=== PATIENT | female | born 1980 | race Two or more races ===

== ENCOUNTER 2017-06-12 02:19 | Inpatient (IN) | payer MEDICAID ==
[~2017-06-12] VITALS: Ht 165.1 cm; Wt 70.0 kg
[2017-06-12 03:32] LABS: microscopic required? NO
[2017-06-12 03:48] LABS: UA SPECIFIC GRAVITY <=1.005 (1.005-1.035); urine erythrocyte NEGATIVE (NEGATIVE)
[2017-06-12 03:52] LABS: BASOPHIL % 0.6 % (0-2)
[2017-06-12 03:54] LABS: PLATELET COUNT 425 x10^3mcL (130-400); RED CELL DISTRIBUTION WIDTH 17.4 % (11.5-14.5)
[2017-06-12 04:01] LABS: CALCIUM 8.9 mg/dL (8.5-10.1); CARBON DIOXIDE 21.9 mmol/L (21-32); CHLORIDE SERUM 103 mmol/L (98-107); GFR1 > 60 mL/min; GLUCOSE SERUM 291 mg/dL (74-106); POTASSIUM SERUM 3.4 mmol/L (3.5-5.1); SODIUM SERUM 141 mmol/L (136-145)
[2017-06-12 04:13] LABS: ALKALINE PHOSPHATASE 44 U/L (46-116); ALT/SGPT 22 U/L (14-59); AST/SGOT 22 U/L (15-37); FREE T4 1.05 ng/dL (0.76-1.46); LIPASE 264 IU/L (73-393); TOTAL PROTEIN, SERUM 7.4 g/dL (6.4-8.2)
[2017-06-12 04:16] LABS: ALBUMIN 3.3 g/dL (3.4-5.0)
[2017-06-12 04:37] LABS: BILIRUBIN TOTAL 0.1 mg/dL (0.20-1.00)
[2017-06-12 05:05] LABS: OSMOLALITY SERUM 380 mOsm/kg (278-298)
[2017-06-12] MEDS ORDERED: METFORMIN HYD1000 M2 PO (05:10)
[2017-06-12] MEDS ORDERED: METOPROLOL TART25 M1 PO (05:36)
[2017-06-12] MEDS ORDERED: LEVEMIR100 U/M1 SC (05:37)
[2017-06-12] MEDS ORDERED: SYNTHROID0.175 MG PO (05:37)
[2017-06-12] MEDS ORDERED: LOSARTAN POTASS1 TA6 PO (05:38)
[2017-06-12 06:30] VITALS: BP 103/69
[2017-06-12 07:23] LABS: AMPHETAMINE QUAL UR NONE DETECTED (NEG <=1000)
[2017-06-12 07:30] LABS: MAGNESIUM 1.7 mg/dL (1.8-2.4); PHOSPHOROUS 2.6 mg/dL (2.5-4.9)
[2017-06-12 07:31] LABS: CHOLESTEROL/HDL RATIO 5.7
[2017-06-12 08:22] VITALS: BP 98/65
[2017-06-12 10:31] VITALS: BP 116/53
[2017-06-12 13:51] LABS: CALCIUM 9.2 mg/dL (8.5-10.1); CARBON DIOXIDE 25.2 mmol/L (21-32); CHLORIDE SERUM 101 mmol/L (98-107); GFR1 > 60 mL/min; GLUCOSE SERUM 295 mg/dL (74-106); POTASSIUM SERUM 3.4 mmol/L (3.5-5.1); SODIUM SERUM 139 mmol/L (136-145)
[2017-06-12 14:15] VITALS: BP 119/63
[2017-06-12 17:05] VITALS: BP 139/61
[2017-06-12 21:18] VITALS: BP 114/77
[2017-06-13 05:55] VITALS: BP 125/85
[2017-06-13 07:03] LABS: CALCIUM 9.3 mg/dL (8.5-10.1); CARBON DIOXIDE 26.1 mmol/L (21-32); CHLORIDE SERUM 101 mmol/L (98-107); CREATININE SERUM 0.8 mg/dL (0.6-1.0); GFR1 > 60 mL/min; GLUCOSE SERUM 237 mg/dL (74-106); MAGNESIUM 1.6 mg/dL (1.8-2.4); POTASSIUM SERUM 3.5 mmol/L (3.5-5.1); SODIUM SERUM 138 mmol/L (136-145)
[2017-06-13 07:32] LABS: BASOPHIL % 0.3 % (0-2); PLATELET COUNT 350 x10^3mcL (130-400)
[2017-06-13 07:34] LABS: RED CELL DISTRIBUTION WIDTH 18.1 % (11.5-14.5)
[2017-06-13] MEDS ORDERED: METOPROLOL TART25 M1 PO (10:01)
[2017-06-13] MEDS ORDERED: LOSARTAN POTASS1 TA6 PO (10:01)
[2017-06-13] MEDS ORDERED: SYNTHROID0.175 MG PO (10:05)
[2017-06-13 10:11] VITALS: BP 119/86
[2017-06-13] MEDS ORDERED: COL100 PO (10:11)
[2017-06-13] MEDS ORDERED: THERAGRAN-M1 TA4 PO (10:14)
[2017-06-13] MEDS ORDERED: LANTUS SOLOS100 U/M1 SQ (10:14)
[2017-06-13] MEDS ORDERED: FOL1 PO (10:15)
[2017-06-13] MEDS ORDERED: THI100 PO (10:15)
[2017-06-13] MEDS ORDERED: LIB25 PO (10:18)
[2017-06-13] MEDS ORDERED: ACETAMINOPHEN-H1 TA1 PO (10:18)
[2017-06-13] MEDS ORDERED: OMEPRAZOLE40 M1 PO (10:19)
[2017-06-13] MEDS ORDERED: BENADRYL ALLERG25 M1 PO (10:19)
[2017-06-13] MEDS ORDERED: CIPRO500 MG PO (10:20)
[2017-06-13] MEDS ORDERED: HUMULIN R100 U/1 M1 SC (10:33)
[2017-06-13] MEDS ORDERED: GLIPIZIDE5 M2 PO (10:47)
[2017-06-13] MEDS ORDERED: ESCITALOPRAM10 M1 PO (11:15)
[2017-06-13 12:22] VITALS: BP 119/86
== END 2017-06-13 13:05 | disposition home or self-care (01) | DRG 775 ==
LOC: ED 02:19 → DU 05:08 → MU 05:08 → DU 06:26 → MU 06-13 08:07
PROVIDERS: Emergency Medicine; Family Medicine
DX: F10.229 Alcohol dependence with intoxication, unspecified (principal); F10.239 Alcohol dependence with withdrawal, unspecified; G92 Toxic encephalopathy; D68.69 Other thrombophilia; E87.2 Acidosis; E11.65 Type 2 diabetes mellitus with hyperglycemia; E83.42 Hypomagnesemia; T51.0X1A Toxic effect of ethanol, accidental (unintentional), initial encounter; T38.3X6A Underdosing of insulin and oral hypoglycemic [antidiabetic] drugs, initial encounter; N83.202 Unspecified ovarian cyst, left side; E87.6 Hypokalemia; F32.9 Major depressive disorder, single episode, unspecified; E66.3 Overweight; Z68.25 Body mass index [BMI] 25.0-25.9, adult; Z66 Do not resuscitate; Z91.120 Patient's intentional underdosing of medication regimen due to financial hardship; Y90.8 Blood alcohol level of 240 mg/100 ml or more; Y92.009 Unspecified place in unspecified non-institutional (private) residence as the place of occurrence of the external cause
CPT/HCPCS: 82962; 83880; 84439; 87804; G0480; J1815; J1885; J2270; J7030; Q0092; Q0163

== ENCOUNTER 2017-12-04 01:37 | Inpatient (IN) | payer SELFPAY ==
[~2017-12-04] VITALS: Ht 165.1 cm; Wt 68.5 kg
[~2017-12-04 01:37] MED LIST: ACETAMINOPHEN-H1 TA1 PO; BENADRYL ALLERG25 M1 PO; CIPRO500 MG PO; COL100 PO; ESCITALOPRAM10 M1 PO; FOL1 PO; GLIPIZIDE5 M2 PO; HUMULIN R100 U/1 M1 SC; LANTUS SOLOS100 U/M1 SQ; LEVEMIR100 U/M1 SC; LIB25 PO; LOSARTAN POTASS1 TA6 PO; METFORMIN HYD1000 M2 PO; METOPROLOL TART25 M1 PO; OMEPRAZOLE40 M1 PO; SYNTHROID0.175 MG PO; THERAGRAN-M1 TA4 PO; THI100 PO
[2017-12-04 03:46] LABS: BASOPHIL % 0.7 % (0-2)
[2017-12-04 04:02] LABS: ALBUMIN 3.4 g/dL (3.4-5.0); ALKALINE PHOSPHATASE 49 U/L (46-116); ALT/SGPT 13 U/L (14-59); AST/SGOT 41 U/L (15-37); BILIRUBIN TOTAL 0.19 mg/dL (0.20-1.00); CALCIUM 8.7 mg/dL (8.5-10.1); CARBON DIOXIDE 14.5 mmol/L (21-32); CHLORIDE SERUM 102 mmol/L (98-107); CREATININE SERUM 0.6 mg/dL (0.6-1.0); GFR1 > 60 mL/min; GLUCOSE SERUM 322 mg/dL (74-106); SODIUM SERUM 139 mmol/L (136-145); TOTAL PROTEIN, SERUM 7.6 g/dL (6.4-8.2)
[2017-12-04 04:03] LABS: PLATELET COUNT 431 x10^3mcL (130-400); RED CELL DISTRIBUTION WIDTH 17.8 % (11.5-14.5)
[2017-12-04] MEDS ORDERED: METFORMIN HYD1000 M2 PO (04:52)
[2017-12-04] MEDS ORDERED: TOPROL XL25 MG PO (04:53)
[2017-12-04] MEDS ORDERED: TIROSINT50 MC1 PO (04:53)
[2017-12-04 05:17] LABS: AMYLASE 76 U/L (25-115); HDL CHOLESTEROL 45 mg/dL (40-60)
[2017-12-04 05:21] LABS: CHOLESTEROL 209 mg/dL (<200); CHOLESTEROL/HDL RATIO 4.6; TRIGLYCERIDES 517 mg/dL (<150)
[2017-12-04 05:25] LABS: T3 TOTAL 0.77 ng/mL
[2017-12-04 05:28] LABS: FREE T4 1.05 ng/dL (0.76-1.46); T4(THYROXINE) 5.7 ug/dL (4.7-13.3)
[2017-12-04 06:49] LABS: microscopic required? NO
[2017-12-04 07:52] LABS: UA SPECIFIC GRAVITY <=1.005 (1.005-1.035); urine erythrocyte NEGATIVE (NEGATIVE)
[2017-12-04 08:29] VITALS: BP 103/59
[2017-12-04 08:55] LABS: CARBON DIOXIDE 17.1 mmol/L (21-32); CHLORIDE SERUM 107 mmol/L (98-107); CREATININE SERUM 0.6 mg/dL (0.6-1.0); GFR1 > 60 mL/min; GLUCOSE SERUM 226 mg/dL (74-106); MAGNESIUM 1.2 mg/dL (1.8-2.4); PHOSPHOROUS 1.5 mg/dL (2.5-4.9); POTASSIUM SERUM 3.6 mmol/L (3.5-5.1); SODIUM SERUM 140 mmol/L (136-145)
[2017-12-04 09:47] LABS: AMPHETAMINE QUAL UR NONE DETECTED (See below)
[2017-12-04 11:31] VITALS: BP 118/71
[2017-12-04 13:56] LABS: CARBON DIOXIDE 21.6 mmol/L (21-32); CHLORIDE SERUM 107 mmol/L (98-107); CREATININE SERUM 0.5 mg/dL (0.6-1.0); GFR1 > 60 mL/min; GLUCOSE SERUM 134 mg/dL (74-106); MAGNESIUM 1.4 mg/dL (1.8-2.4); PHOSPHOROUS 1.9 mg/dL (2.5-4.9); SODIUM SERUM 143 mmol/L (136-145)
[2017-12-04 16:11] VITALS: BP 122/91
[2017-12-04 16:42] VITALS: Ht 165.1 cm; Wt 68.5 kg
[2017-12-04 16:42] LABS: CALCIUM 6.8 mg/dL (8.5-10.1); CARBON DIOXIDE 22.1 mmol/L (21-32); CHLORIDE SERUM 105 mmol/L (98-107); CREATININE SERUM 0.4 mg/dL (0.6-1.0); GFR1 > 60 mL/min; GLUCOSE SERUM 128 mg/dL (74-106); PHOSPHOROUS 1.5 mg/dL (2.5-4.9); POTASSIUM SERUM 3.1 mmol/L (3.5-5.1); SODIUM SERUM 140 mmol/L (136-145)
[2017-12-04 16:52] LABS: MAGNESIUM 1.7 mg/dL (1.8-2.4)
[2017-12-04 19:59] VITALS: BP 122/77
[2017-12-04 20:46] LABS: CARBON DIOXIDE 19.1 mmol/L (21-32); CHLORIDE SERUM 104 mmol/L (98-107); CREATININE SERUM 0.5 mg/dL (0.6-1.0); GFR1 > 60 mL/min; GLUCOSE SERUM 146 mg/dL (74-106); MAGNESIUM 1.4 mg/dL (1.8-2.4); PHOSPHOROUS 2.4 mg/dL (2.5-4.9); POTASSIUM SERUM 3.3 mmol/L (3.5-5.1); SODIUM SERUM 139 mmol/L (136-145)
[2017-12-05] VITALS: BP 124/83
[2017-12-05 01:55] LABS: BASOPHIL % 0.5 % (0-2); PLATELET COUNT 357 x10^3mcL (130-400)
[2017-12-05 01:58] LABS: RED CELL DISTRIBUTION WIDTH 18.3 % (11.5-14.5)
[2017-12-05 02:14] LABS: ALKALINE PHOSPHATASE 38 U/L (46-116); ALT/SGPT 26 U/L (14-59); AST/SGOT 34 U/L (15-37); BILIRUBIN TOTAL 0.38 mg/dL (0.20-1.00); CALCIUM 7.6 mg/dL (8.5-10.1); CARBON DIOXIDE 22.9 mmol/L (21-32); CHLORIDE SERUM 103 mmol/L (98-107); CREATININE SERUM 0.7 mg/dL (0.6-1.0); GFR1 > 60 mL/min; GLUCOSE SERUM 212 mg/dL (74-106); SODIUM SERUM 134 mmol/L (136-145)
[2017-12-05 02:15] LABS: ALBUMIN 2.7 g/dL (3.4-5.0)
[2017-12-05 04:00] VITALS: BP 111/88
[2017-12-05 06:02] LABS: BASOPHIL % 0.7 % (0-2); PLATELET COUNT 360 x10^3mcL (130-400)
[2017-12-05 06:03] LABS: RED CELL DISTRIBUTION WIDTH 18.5 % (11.5-14.5)
[2017-12-05 06:06] LABS: CALCIUM 7.5 mg/dL (8.5-10.1); CARBON DIOXIDE 25.1 mmol/L (21-32); CHLORIDE SERUM 106 mmol/L (98-107); CREATININE SERUM 0.6 mg/dL (0.6-1.0); GFR1 > 60 mL/min; GLUCOSE SERUM 124 mg/dL (74-106); MAGNESIUM 1.2 mg/dL (1.8-2.4); PHOSPHOROUS 2.5 mg/dL (2.5-4.9); POTASSIUM SERUM 3.2 mmol/L (3.5-5.1); SODIUM SERUM 136 mmol/L (136-145)
[2017-12-05 07:30] VITALS: BP 92/55
[2017-12-05 15:04] VITALS: BP 132/87
[2017-12-05 18:03] VITALS: BP 119/82
[2017-12-05 22:10] VITALS: BP 99/69
[2017-12-06 05:33] VITALS: BP 128/85
[2017-12-06 07:01] LABS: BASOPHIL % 0.6 % (0-2); PLATELET COUNT 338 x10^3mcL (130-400)
[2017-12-06 07:02] LABS: RED CELL DISTRIBUTION WIDTH 18.6 % (11.5-14.5)
[2017-12-06 07:30] LABS: CALCIUM 7.3 mg/dL (8.5-10.1); CARBON DIOXIDE 24.1 mmol/L (21-32); CHLORIDE SERUM 104 mmol/L (98-107); CREATININE SERUM 0.6 mg/dL (0.6-1.0); GFR1 > 60 mL/min; GLUCOSE SERUM 229 mg/dL (74-106); MAGNESIUM 1.8 mg/dL (1.8-2.4); PHOSPHOROUS 2.9 mg/dL (2.5-4.9); POTASSIUM SERUM 3.9 mmol/L (3.5-5.1); SODIUM SERUM 137 mmol/L (136-145)
[2017-12-06 09:02] VITALS: BP 118/83
[2017-12-06] MEDS ORDERED: METFORMIN HCL850 MG PO (11:24)
[2017-12-06] MEDS ORDERED: ATI1 PO (11:29)
[2017-12-06] MEDS ORDERED: SYN75 PO (11:29)
[2017-12-06 12:45] VITALS: BP 115/87
[2017-12-06 14:08] VITALS: BP 115/87
== END 2017-12-06 19:15 | disposition home or self-care (01) | DRG 638 ==
LOC: ED 01:37 → IC 04:35 → DU 12-05 11:58
PROVIDERS: Emergency Medicine; Internal Medicine
DX: E11.10 Type 2 diabetes mellitus with ketoacidosis without coma (principal); K86.1 Other chronic pancreatitis; F10.129 Alcohol abuse with intoxication, unspecified; Y90.7 Blood alcohol level of 200-239 mg/100 ml; K52.9 Noninfective gastroenteritis and colitis, unspecified; E87.6 Hypokalemia; E83.42 Hypomagnesemia; E83.39 Other disorders of phosphorus metabolism; E78.1 Pure hyperglyceridemia; I10 Essential (primary) hypertension; E03.9 Hypothyroidism, unspecified; Z79.4 Long term (current) use of insulin
CPT/HCPCS: 83880; 84439; C9113; G0480; J1815; J2060; J2270; J2405; J3475; J3480; J3490; J7030; Q0092

== ENCOUNTER 2018-02-07 02:37 | Inpatient (IN) | payer SELFPAY ==
[~2018-02-07] VITALS: Ht 165.1 cm; Wt 70.1 kg
[~2018-02-07 02:37] MED LIST changes: +ACYCLOVIR400 MG PO; +ATI1 PO; +ATIVAN1 MG PO; +EPZICOM1 TAB PO; +IBUPROFEN400 MG PO; +LAC PO; +LEVEMIR100 U/M1 SQ; +METFORMIN HCL850 MG PO; +NITROFURANTOIN100 MG PO; +PYRIDIUM100 MG PO; +SYN75 PO; +TETRACYCLINE H500 MG PO; +TIROSINT50 MC1 PO; +TOPROL XL25 MG PO; +[UNRECOGNIZED DRUG - OTHER] TOP
[2018-02-07 04:32] LABS: BASOPHIL % 0.5 % (0-2); PLATELET COUNT 399 x10^3mcL (130-400); RED CELL DISTRIBUTION WIDTH 16.9 % (11.5-14.5)
[2018-02-07 04:34] LABS: ALKALINE PHOSPHATASE 49 U/L (46-116); ALT/SGPT 34 U/L (14-59); AST/SGOT 41 U/L (15-37); BILIRUBIN TOTAL 0.21 mg/dL (0.20-1.00); CALCIUM 9.1 mg/dL (8.5-10.1); CARBON DIOXIDE 17.5 mmol/L (21-32); CHLORIDE SERUM 100 mmol/L (98-107); CREATININE SERUM 0.7 mg/dL (0.6-1.0); FREE T4 1.02 ng/dL (0.76-1.46); GFR1 > 60 mL/min; GLUCOSE SERUM 305 mg/dL (74-106); LIPASE 449 IU/L (73-393); SODIUM SERUM 137 mmol/L (136-145); TOTAL PROTEIN, SERUM 7.8 g/dL (6.4-8.2)
[2018-02-07 04:39] LABS: ALBUMIN 3.3 g/dL (3.4-5.0); POTASSIUM SERUM 2.8 mmol/L (3.5-5.1)
[2018-02-07 05:23] LABS: UA SPECIFIC GRAVITY <=1.005 (1.005-1.035); microscopic required? YES; urine erythrocyte 3+ (NEGATIVE)
[2018-02-07 05:35] LABS: AMPHETAMINE QUAL UR NONE DETECTED (See below)
[2018-02-07 07:06] LABS: CHOLESTEROL/HDL RATIO 4.4; MAGNESIUM 1.6 mg/dL (1.8-2.4); PHOSPHOROUS 4.1 mg/dL (2.5-4.9)
[2018-02-07 08:49] VITALS: BP 142/88
[2018-02-07 11:48] VITALS: BP 113/70
[2018-02-07 12:46] LABS: CARBON DIOXIDE 20.5 mmol/L (21-32); CHLORIDE SERUM 108 mmol/L (98-107); CREATININE SERUM 0.5 mg/dL (0.6-1.0); GFR1 > 60 mL/min; GLUCOSE SERUM 162 mg/dL (74-106); MAGNESIUM 1.8 mg/dL (1.8-2.4); PHOSPHOROUS 1.3 mg/dL (2.5-4.9); POTASSIUM SERUM 3.3 mmol/L (3.5-5.1); SODIUM SERUM 140 mmol/L (136-145)
[2018-02-07 15:19] VITALS: BP 107/64
[2018-02-07 16:33] LABS: CALCIUM 7.3 mg/dL (8.5-10.1); CARBON DIOXIDE 20.3 mmol/L (21-32); CHLORIDE SERUM 106 mmol/L (98-107); CREATININE SERUM 0.6 mg/dL (0.6-1.0); GFR1 > 60 mL/min; GLUCOSE SERUM 255 mg/dL (74-106); MAGNESIUM 1.6 mg/dL (1.8-2.4); PHOSPHOROUS 2.6 mg/dL (2.5-4.9); SODIUM SERUM 140 mmol/L (136-145)
[2018-02-07 16:36] LABS: POTASSIUM SERUM 2.8 mmol/L (3.5-5.1)
[2018-02-07 19:37] VITALS: BP 103/66
[2018-02-07 20:22] LABS: CALCIUM 7.6 mg/dL (8.5-10.1); CARBON DIOXIDE 22.6 mmol/L (21-32); CREATININE SERUM 0.7 mg/dL (0.6-1.0); GFR1 > 60 mL/min; GLUCOSE SERUM 186 mg/dL (74-106); MAGNESIUM 1.6 mg/dL (1.8-2.4); PHOSPHOROUS 3.2 mg/dL (2.5-4.9)
[2018-02-07 20:28] LABS: CHLORIDE SERUM 105 mmol/L (98-107); POTASSIUM SERUM 3.7 mmol/L (3.5-5.1); SODIUM SERUM 135 mmol/L (136-145)
[2018-02-07 23:40] VITALS: BP 101/73
[2018-02-08 00:44] LABS: CALCIUM 7.4 mg/dL (8.5-10.1); CARBON DIOXIDE 22.1 mmol/L (21-32); CHLORIDE SERUM 105 mmol/L (98-107); CREATININE SERUM 0.5 mg/dL (0.6-1.0); GFR1 > 60 mL/min; GLUCOSE SERUM 212 mg/dL (74-106); MAGNESIUM 1.7 mg/dL (1.8-2.4); PHOSPHOROUS 2.8 mg/dL (2.5-4.9); POTASSIUM SERUM 3.4 mmol/L (3.5-5.1); SODIUM SERUM 137 mmol/L (136-145)
[2018-02-08 03:10] VITALS: BP 102/76
[2018-02-08 04:43] LABS: BASOPHIL % 0.5 % (0-2); PLATELET COUNT 309 x10^3mcL (130-400)
[2018-02-08 04:51] LABS: RED CELL DISTRIBUTION WIDTH 17.2 % (11.5-14.5)
[2018-02-08 05:18] LABS: CALCIUM 7.6 mg/dL (8.5-10.1); CHLORIDE SERUM 106 mmol/L (98-107); CREATININE SERUM 0.6 mg/dL (0.6-1.0); GFR1 > 60 mL/min; GLUCOSE SERUM 126 mg/dL (74-106); MAGNESIUM 2.3 mg/dL (1.8-2.4); SODIUM SERUM 134 mmol/L (136-145)
[2018-02-08 08:20] VITALS: Ht 165.1 cm; Wt 70.1 kg
[2018-02-08 08:37] LABS: CALCIUM 8.1 mg/dL (8.5-10.1); CARBON DIOXIDE 22.7 mmol/L (21-32); CHLORIDE SERUM 105 mmol/L (98-107); CREATININE SERUM 0.5 mg/dL (0.6-1.0); GFR1 > 60 mL/min; GLUCOSE SERUM 221 mg/dL (74-106); MAGNESIUM 2.1 mg/dL (1.8-2.4); PHOSPHOROUS 2.8 mg/dL (2.5-4.9); POTASSIUM SERUM 3.3 mmol/L (3.5-5.1); SODIUM SERUM 138 mmol/L (136-145)
[2018-02-08 10:05] VITALS: BP 105/48
[2018-02-08 11:20] VITALS: BP 111/78
[2018-02-08 13:20] LABS: CALCIUM 8.1 mg/dL (8.5-10.1); CARBON DIOXIDE 21.5 mmol/L (21-32); CHLORIDE SERUM 103 mmol/L (98-107); CREATININE SERUM 0.6 mg/dL (0.6-1.0); GFR1 > 60 mL/min; GLUCOSE SERUM 356 mg/dL (74-106); PHOSPHOROUS 3.2 mg/dL (2.5-4.9); POTASSIUM SERUM 3.5 mmol/L (3.5-5.1); SODIUM SERUM 136 mmol/L (136-145)
[2018-02-08 16:42] VITALS: BP 122/54
[2018-02-08 16:50] LABS: CALCIUM 8.1 mg/dL (8.5-10.1); CARBON DIOXIDE 23.1 mmol/L (21-32); CHLORIDE SERUM 105 mmol/L (98-107); CREATININE SERUM 0.6 mg/dL (0.6-1.0); GFR1 > 60 mL/min; GLUCOSE SERUM 319 mg/dL (74-106); MAGNESIUM 1.9 mg/dL (1.8-2.4); PHOSPHOROUS 2.7 mg/dL (2.5-4.9); POTASSIUM SERUM 3.3 mmol/L (3.5-5.1); SODIUM SERUM 136 mmol/L (136-145)
[2018-02-08 20:31] VITALS: BP 11/96; BP 118/96
[2018-02-09 05:32] VITALS: BP 119/87
[2018-02-09 07:03] LABS: BASOPHIL % 0.5 % (0-2); PLATELET COUNT 306 x10^3mcL (130-400)
[2018-02-09 07:15] LABS: RED CELL DISTRIBUTION WIDTH 17.7 % (11.5-14.5)
[2018-02-09 07:46] LABS: CALCIUM 8.5 mg/dL (8.5-10.1); CARBON DIOXIDE 25.6 mmol/L (21-32); CHLORIDE SERUM 108 mmol/L (98-107); CREATININE SERUM 0.6 mg/dL (0.6-1.0); GFR1 > 60 mL/min; GLUCOSE SERUM 176 mg/dL (74-106); MAGNESIUM 1.7 mg/dL (1.8-2.4); PHOSPHOROUS 3.3 mg/dL (2.5-4.9); POTASSIUM SERUM 3.5 mmol/L (3.5-5.1); SODIUM SERUM 141 mmol/L (136-145)
[2018-02-09 08:27] VITALS: BP 118/81
[2018-02-09] MEDS ORDERED: METOPROLOL TART25 M1 PO (11:51)
[2018-02-09] MEDS ORDERED: VALTREX1 GM PO (11:54)
[2018-02-09] MEDS ORDERED: BACTRIM DS1 TAB PO (12:00)
[2018-02-09 13:15] VITALS: BP 118/81
== END 2018-02-09 15:44 | disposition home or self-care (01) | DRG 637 ==
LOC: ED 02:37 → IC 05:55 → MU 05:55 → IC 07:08 → MU 02-08 11:21
PROVIDERS: Emergency Medicine; Internal Medicine
DX: E11.10 Type 2 diabetes mellitus with ketoacidosis without coma (principal); N17.0 Acute kidney failure with tubular necrosis; N39.0 Urinary tract infection, site not specified; I10 Essential (primary) hypertension; E11.65 Type 2 diabetes mellitus with hyperglycemia; E03.9 Hypothyroidism, unspecified; E78.5 Hyperlipidemia, unspecified; E87.6 Hypokalemia; E83.42 Hypomagnesemia; F10.129 Alcohol abuse with intoxication, unspecified; Y90.8 Blood alcohol level of 240 mg/100 ml or more; A60.04 Herpesviral vulvovaginitis; Z79.4 Long term (current) use of insulin; Z83.3 Family history of diabetes mellitus; Z79.899 Other long term (current) drug therapy
CPT/HCPCS: 82962; 83880; 84439; G0480; J0696; J1815; J2060; J2270; J3010; J3411; J3475; J3480; J3490; J7030; Q0163

== ENCOUNTER 2018-03-17 05:10 | Emergency (ER) | payer SELFPAY ==
[~2018-03-17] VITALS: Ht 165.1 cm; Wt 61.2 kg
[~2018-03-17 05:10] MED LIST changes: +BACTRIM DS1 TAB PO; +VALTREX1 GM PO
[2018-03-17 05:13] VITALS: Ht 165.1 cm; Wt 61.2 kg
[2018-03-17 05:59] LABS: BASOPHIL % 0.4 % (0-2)
[2018-03-17 06:06] LABS: PLATELET COUNT 462 x10^3mcL (130-400); RED CELL DISTRIBUTION WIDTH 16.3 % (11.5-14.5)
[2018-03-17 06:08] LABS: ALKALINE PHOSPHATASE 55 U/L (46-116); ALT/SGPT 34 U/L (14-59); AST/SGOT 46 U/L (15-37); BILIRUBIN TOTAL 0.14 mg/dL (0.20-1.00); CALCIUM 7.9 mg/dL (8.5-10.1); CARBON DIOXIDE 23.3 mmol/L (21-32); CHLORIDE SERUM 109 mmol/L (98-107); CREATININE SERUM 0.6 mg/dL (0.6-1.0); GFR1 > 60 mL/min; GLUCOSE SERUM 96 mg/dL (74-106); SODIUM SERUM 145 mmol/L (136-145); TOTAL PROTEIN, SERUM 7.3 g/dL (6.4-8.2)
[2018-03-17 06:15] LABS: POTASSIUM SERUM 2.8 mmol/L (3.5-5.1)
[2018-03-17 07:43] LABS: UA SPECIFIC GRAVITY <=1.005 (1.005-1.035); microscopic required? YES; urine erythrocyte NEGATIVE (NEGATIVE)
[2018-03-17 10:38] VITALS: BP 120/81
== END 2018-03-17 11:16 | disposition home or self-care (01) ==
LOC: ED 05:10
PROVIDERS: Emergency Medicine
DX: E11.649 Type 2 diabetes mellitus with hypoglycemia without coma (principal); F10.129 Alcohol abuse with intoxication, unspecified; E03.9 Hypothyroidism, unspecified; I10 Essential (primary) hypertension; Z98.890 Other specified postprocedural states
CPT/HCPCS: 82962; G0480; J1885; J3475; J3480; J3490; J7030; J7050

== ENCOUNTER 2019-01-16 23:02 | Inpatient (IN) | payer MEDICAID ==
[~2019-01-16] VITALS: Ht 165.1 cm; Wt 62.9 kg
[2019-01-16 23:06] VITALS: Ht 165.1 cm; Wt 62.9 kg
--- NOTE | 2019-01-17 00:10 | NUR ---
MSE COMPLETED BY DR FINE.
--- NOTE | 2019-01-17 00:12 | NUR ---
PT PRESENTS TO THE ED TODAY WITH C/C OF "LOSS" OF PEDAL PULSES X1 WEEK. PT HAS SIGNIFICANT HISTORY OF DM WITH NEUROPATHY. REPORTS THAT SHE IS HAVING NUMBNESS TO BILATERAL FEET. FEET ARE WARM AND PINK WITH STRONG PEDAL PULSES PALPATED. PT IS AWAKE AND ALERT, RESP E/U, NAD NOTED.
--- NOTE | 2019-01-17 00:44 | NUR ---
IV BOLUS INITIATED. SHORTLY AFTERWARDS, PT STATED "OH I'M ITCHY NOW, FOR SOME REASON, I GET ITCHY WHENEVER YOU GIVE ME NORMAL FLUIDS." PT REQUESTED BENADRYL AT THIS TIME. PT ALSO REPORTS THAT SHE IS HAVING BILATERAL LEG PAIN, RATES PAIN 9/10. PT THEN STATED "I USUALLY GET MORPHINE OR DILAUDID." MADE AWARE. PT LAYING COMFORTABLY IN GURNEY, AWAKE AND ALERT, RESP E/U, NAD NOTED.
[2019-01-17 00:45] LABS: BASOPHIL % 0.2 % (0-2); PLATELET COUNT 303 x10^3mcL (130-400)
--- NOTE | 2019-01-17 00:45 | NUR ---
PT AWARE OF NEED FOR URINE SAMPLE, WILL PROVIDE WHEN SHE IS ABLE TO.
--- NOTE | 2019-01-17 00:47 | NUR ---
UPON LEAVING ROOM, PT STATED "CAN YOU ALSO ASK THE DOCTOR FOR SOMETHING FOR MY ANXIETY? I'LL TAKE WHATEVER, LIKE ATIVAN OR SOMETHING." MADE AWARE.
[2019-01-17 01:03] LABS: ALBUMIN 3.4 g/dL (3.4-5.0); ALKALINE PHOSPHATASE 102 U/L (46-116); ALT/SGPT 51 U/L (14-59); AST/SGOT 27 U/L (15-37); CALCIUM 8.6 mg/dL (8.5-10.1); CARBON DIOXIDE 23.1 mmol/L (21-32); CHLORIDE SERUM 99 mmol/L (98-107); CREATININE SERUM 0.9 mg/dL (0.6-1.0); GFR1 > 60 mL/min; POTASSIUM SERUM 3.8 mmol/L (3.5-5.1); SODIUM SERUM 137 mmol/L (136-145); TOTAL PROTEIN, SERUM 7.4 g/dL (6.4-8.2)
[2019-01-17 01:06] LABS: GLUCOSE SERUM 610 mg/dL (74-106)
--- NOTE | 2019-01-17 01:30 | NUR ---
PT. REQUESTING PAIN MEDICATION AND ANXIETY MEDICAION. DR. FINE MADE AWARE.
--- NOTE | 2019-01-17 03:00 | NUR ---
PT. OUT OF BED WALKING TO [employer], STATES SHE WANTS TO GO OUTSIDE AND SMOKE AND CIGARETTE. INFORMED PT. SHE IS NOT ALLOWED TO GO OUTSIDE AT THIS TIME. PT. VERBALIZED UNDERSTANDING AND AMBULATED BACK TO ROOM WITH STEADY GAIT
--- NOTE | 2019-01-17 03:19 | NUR ---
REPORT GIVEN TO MARCIA CHAN FOR FURTHER CARE OF PATIENT. ALL QUESTIONS AND CONCERNS ADDRESSED
[2019-01-17] MEDS ORDERED: GABAPENTIN100 M2 (03:27)
[2019-01-17] MEDS ORDERED: LANTUS SOLOS100 U/M1 (03:27)
[2019-01-17] MEDS ORDERED: SIMVASTATIN10 M1 (03:28)
--- NOTE | 2019-01-17 03:50 | NUR ---
PT. TRANSFERED TO TELE DEPARTMENT VIA GURNEY. PT. AWAKE AND ALERT. BREATHING E/U. NOT IN ANY APPARENT DISTRESS. AMBULATED TO BED WITH ASSISTANCE. REPORTS FEELING SLEEPY AND TIRED AFTER BENADRLY. ROCIO MÉNDEZ AT BEDSIDE AND ASSUMED CARE OF PATIENT. PT. STABLE AT TIME OF TRANSFER.
--- NOTE | 2019-01-17 04:21 | NUR ---
ADMITTED PT FROM ER WITH ADMITTING DX OF UNCONTROLLED DM, FACILITATED TO ASSIGNED BED AND ADMISSION CARE PROT RENDERED, ORIENTED TO ROOM SET UP, PT AMBULATORY WOBBLE A LITTLE DROWSY, PER NURSE BENADRYL JUST GIVEN FOR ITCHING ENSURES SAFETY, BED ALARM ON, HOOKED TO TELE MONITOR #15 SR NO CP OR PRESSURE IV ACCESS @ [facility] PATENT IVF NS INFUSING STARTED IN ER, NO S/SX OF HYPO/HYPERGLYCEMIA, BS 228 MG/DL PER REPORT, AFTER 10UNITS REG INSULIN GIVEN IV AT ER, ADMISSION ASSESSMENT DONE, INSTRUCTED PT TO USE THE CALL LIGHT FOR ASSISTANCE, CALL LIGHT AT REACH, BED ALARM ON FOR SAFETY, PT ASKING IF SHE CAN SMOKE WANTED TO GO OUT, EXPLAINED HOSPITAL POLICY FOR SMOKING, WILL CONT TO MONITOR.
[2019-01-17 04:29] LABS: UA SPECIFIC GRAVITY <=1.005 (1.005-1.035); microscopic required? YES; urine erythrocyte NEGATIVE (NEGATIVE)
[2019-01-17 04:30] LABS: AMPHETAMINE QUAL UR NONE DETECTED (See below)
--- NOTE | 2019-01-17 04:40 | NUR ---
PT ATTEMPTED TO GET OUT OF BED, RISK FOR FALL WITH UNSTEADY GAIT, MOVED TO ROOM 248 NEAR TO NURSES STATION, CONT TO MONITOR.
[2019-01-17 05:00] VITALS: BP 107/70
--- NOTE | 2019-01-17 07:16 | NUR ---
PT SLEEPING DONT WANT TO BE BOTHER, BS 218MG/DL COVERED 6 UNITS REG INSULIN NO S/SX OF PAIN, WILL ENDORSE TO INCOMING SHIFT FOR F/U CARE.
[2019-01-17 08:01] VITALS: BP 114/66
[2019-01-17 08:06] LABS: BASOPHIL % 0.7 % (0-2); PLATELET COUNT 293 x10^3mcL (130-400)
[2019-01-17 08:10] LABS: RED CELL DISTRIBUTION WIDTH 16.2 % (11.5-14.5)
[2019-01-17 08:18] LABS: CALCIUM 7.5 mg/dL (8.5-10.1); CARBON DIOXIDE 24.2 mmol/L (21-32); CHLORIDE SERUM 110 mmol/L (98-107); CREATININE SERUM 0.6 mg/dL (0.6-1.0); GFR1 > 60 mL/min; GLUCOSE SERUM 177 mg/dL (74-106); MAGNESIUM 1.4 mg/dL (1.8-2.4); PHOSPHOROUS 3.3 mg/dL (2.5-4.9); POTASSIUM SERUM 3.1 mmol/L (3.5-5.1); SODIUM SERUM 146 mmol/L (136-145)
--- NOTE | 2019-01-17 08:58 | NUR ---
PATIENT STILL IN BED, BREATHING EVEN AND UNLABORED W/ BED SHEET COVERING FACE. GESTURES RESPONSIVE TO FEW VERBAL STIMULI. INTRODUCED MYSELF AND INFORMED HER OF MEDICATIONS DUE. PATIENT STATES UNDER HER SHEET "GIVE ME LIKE 10 MINUTES, AND I'LL GET UP". WILL CONT TO MONITOR.
--- NOTE | 2019-01-17 10:02 | NUR ---
PATIENT REQUESTING FOR PAIN MED FOR LEGS 9/10 TINGLING, TYLENOL OFFERED AND REFUSED ALSO REQUESTING FOR ATIVAN. "I NEED IV MEDS, WHEN IM IN THE HOSPITAL I USUALLY GET MORPHINE IV 4MG EVERY 4-6 HOURS" ALSO STATES TYELNOL MAKES HER BLOATED AND RETAINS FLUIDS? WILL PAGE AND NOTIFY DR MARIO.
--- NOTE | 2019-01-17 11:05 | NUR ---
BLOOD SUGAR 131, PER PATIENT "THATS REALLY LOW FOR ME". STATES HUNGRY AND STILL REQUESTING FOR ANXIETY AND PAIN MEDS. EARLY LUNCH TRAY REQUESTED.
[2019-01-17 11:50] VITALS: BP 97/62
--- NOTE | 2019-01-17 12:02 | NUR ---
PATIENT REQUESTING TO SMOKE OUTSIDE, PATCH OFFERED AND REFUSED. "IF THEYRE NOT GIVING ME MY ANXIETY MEDICATION, THEN THEY NEED TO LET ME BE ESCORTED OUTSIDE TO SMOKE" DR MARIO PAGE GATED. PATIENT STATES TORADOL NOT EFFECTIVE.
--- NOTE | 2019-01-17 12:15 | NUR ---
LUNCH TRAY PROVIDED, PATIENT STATES MEAT WAS TOO HARD REQUESTING FOR A DIFFERENT LUNCH, FNS MADE AWARE, WILL MAKE ACCOMODATIONS.
--- NOTE | 2019-01-17 13:23 | NUR ---
PATIENT PERSISTENT WITH ANXIETY AND PAIN MEDICATIONS, INFORMED HER NO NEW ORDERS WERE PLACED. ALSO INFORMED HER OF HER VERY DROWSY STATE AFTER SHE WAS GIVEN MORPHINE LAST NIGHT PER REPORT AND MEDS MAY NOT BE SAFE AT THIS TIME, PATIENT STATES "WELL IM NOT DROWSY NOW, CANT I TAKE THE MEDS NOW? I WANT A NEW DOCTOR" CHARGE NURSE MADE AWARE, DR MARIO MADE AWARE. SHE CAME AT BEDSIDE AND SPOKE WITH PATIENT. PATIENT STILL PERSISTENT WITH PAIN MANAGEMENT AND ANXIETY MEDICATION, BUT STATES CURRENT TREATMENT NOT HELPING. DR KEN NOW AT BEDSIDE.
--- NOTE | 2019-01-17 14:35 | NUR ---
ATIVAN 0.5MG PO WAS ORDERED, BRIANNA NURSE [place] TRIED TO ADMINISTER, PATIENT REFUSED. PATIENT HAD A 3RD SMALL BM STILL OILY, PER PATIENT "THIS IS WHY I CANT HAVE ORAL MEDS BECAUSE IT JUST GOES RIGHT THROUGH ME LIKE THAT, SO I NEED THE IV MEDS, CAN YOU TELL THE DOCTOR THIS AND ONCE THEY ORDER IT CAN YOU BRING THEM IN? IN THE MEANTIME I'M GOING TO TRY AND REST". DR MARIO PAGED/PAGE GATED.
--- NOTE | 2019-01-17 15:42 | NUR ---
IV ATIVAN 1MG ORDERED AND GIVEN. PATIENT WANTS VANILLA PUDDING, NOT ENCOURAGING DUE TO DIABETES AND DINNER COMING SOON, PATIENT PERSISTENT. ADVISED TO CHECK BLOOD SUGAR FIRST. BS 421, PATIENT STILL WANTS PUDDING, NO ADDED SUGAR PUDDING PROVIDED. INSULIN COVERAGE GIVEN. PATIENT ALSO REQUESTING FOR MIDNIGHT SNACK W/ DINNER (CREAM OF WHEAT), FNS MADE AWARE. WILL CONT TO MONITOR.
[2019-01-17 16:52] VITALS: BP 130/67
--- NOTE | 2019-01-17 18:26 | NUR ---
PATIENT REQUESTING FOR MEDICATIONS FOR NAUSEA, ANXIETY, PAIN AND FOR BENEDRYL IV'S. INFORMED PATIENT ATIVAN WAS ONLY A ONE TIME DOSE AND TORADOL IS Q8H AND NOT DUE YET. NO ORDER FOR BENEDRYL PLACED. PATIENT STATES PAIN IS 'EXCRUCIATING' TO BLE'S AND ABD DISCOMFORT ALSO PRESENT. "I NEED THEM TO ORDER TORADOL MORE FREQUENTLY OR SOMETHING STRONGER. AND I NEED BENEDRYL AND ATIVAN IV TOO, I CANT TAKE PILLS, I HAD 6 BM'S TODAY", STOOL SEMI-SOFT BROWN W/ OILY CONTENT. DR MARIO WAS AWARE OF STOOLS, NO NEW ORDERS PLACED TO COLLECT SPECIMEN. PATIENT REQUESTED DOPPLER US FOR LEGS, DR MARIO WAS ALSO AWARE OF REQUEST, NO NEW ORDERS PLACED FOR STUDY. WILL CONT TO MONITOR AND ENDROSE CARE TO NOC NURSE AND TO FOLLOW UP WITH REGARDING PATIENT REQUESTS.
--- NOTE | 2019-01-17 19:38 | NUR ---
PT. AWAKE, ALERT, ORIENTED X4. DENIES HEADACHE OR DIZZINESS. BREATH SOUNDS CLEAR THROUGHOUT LUNG ANDERSON, RESP. EVEN, UNLABORED. NO SOB NOTED. PT. ON RA. ABD. SOFT AND ROUND, BOWEL SOUNDS ACTIVE. DENIES ABD. PAIN, DENIES NAUSEA. EPDAL PULSES MODERATE BLE. PT. C/O INTERMITTENT PAIN IN BLE, TINGLING IN BLE. ALSO C/O PAIN IN JOINTS OF BLE. NO EDEMA NOTED. PT. W/ FULL ROM. IV HEPLOCKED, SITE INTACT. PT. REQUESTING PAIN MEDICATION. TORADOL PRN AVAILABLE FOR PAIN. CALL LIGHT WITHIN REACH.
--- NOTE | 2019-01-17 20:06 | NUR ---
PRN TORADOL GIVEN FOR C/O PAIN AND DISCOMFORT AND ALSO TINGLING PER PT., IN BLE. PT. REQUESTING IV BENADRYL AND ALSO IV ATIVAN. MEDICATIONS WERE NOT ORDERED BY REPAIRER CONTROLLER TESTER DURING DAY SHIFT. NO PRN IV BENADRYL OR IV ATIVAN AVAILABLE. PT. STATED THAT SHE WAS TOLD THAT SHE COULD HAVE THE IV MED. MADE AWARE AND WILL SPEAK WITH PT. REGARDING MEDICATIONS.
[2019-01-17 20:53] VITALS: BP 145/92
--- NOTE | 2019-01-17 22:07 | NUR ---
DR. MURPHY SPOKE WITH PATIENT. BENADRYL IVP ORDERED. WILL GIVE ONCE MEDICATION IS VERIFIED.
--- NOTE | 2019-01-18 00:28 | NUR ---
PT. STATED THAT DOCTOR INFORMED HER TO ASK FOR HIM IF HER PAIN MEDICATION OR THE BENADRYL THAT SHE RECEIVED DID NOT WORK. DR. MURPHY PAGED. AWAITING CALL BACK AT THIS TIME. PATIENT MADE AWARE. PT. STATED THAT HER PAIN LEVEL IN BLE IS 10/10. PT. SITTING UP IN BED EATING SNACKS. NO OBVIOUS SIGNS OF DISTRESS, LEGSS CROSS AND WATCHING TV ALSO.
--- NOTE | 2019-01-18 02:45 | NUR ---
PT. WITH EYES CLOSED. NO APPEARANT SIGNS OF DISTRESS. WILL CONTINUE TO MONITOR.
--- NOTE | 2019-01-18 04:17 | NUR ---
PT. REQUESTING PAIN MEDICATION. PRN TORADOL IVP GIVEN ORDERED. PT. ALSO REQUESTING FOR BLOOD SUGAR TO BE TAKEN EARLY. STATED THAT SHE DOES NOT WANT TO BE AWAKENED IF SHE FALLS ASLEEP BECAUSE SHE DID NOT SLEEP WELL THROUGHOUT NIGHT. PT. ADVICED THAT IT WAS TOO EARLY TO DO BLOOD SUGAR LEVELS AND THE HOURS BETWEEN 5-5:30 WAS OFFERED A CHOICE. PT. STATED TGEN SHE WOULD RATHER NOT HAVE HER BLOOD SUGAR LEVELS CHECKED TILL AFTER 7-7:30 AM. PT. MADE AWARE THAT THE DOCTOR ORDERED AM LABS WHICH ARE SCHEDULED FOR 5-5:30, PT. ALSO REQUESTING AT THIS TIME THAT LABS BE DELAYED ALSO.
--- NOTE | 2019-01-18 07:25 | NUR ---
RECEIVED A BEDSIDE REPORT. SEEN PATIENT AWAKE, ALERT, ORIENTED X4. STATED STILL HAVING PAIN TO WRISTS AND ANKLES AREA AND STILL WAITING FOR THE DOCTOR FOR PAIN MEDICATION. PLAN OF CARE DISCUSSED, PATIENT VERBALIZED UNDERSTANDING. S/L TO LEFT WRIST NOTED INTACT. BREATHING EASY AND EVEN ON ROOM AIR.
--- NOTE | 2019-01-18 07:30 | NUR ---
[facility] BREAKFAST TRAY PROVIDED, PATIENT COMPLAINTS THAT HER FOOD IS COLD AND REQUESTED A NEW BREAKFAST. KITCHEN NOTIFIED.
--- NOTE | 2019-01-18 07:50 | NUR ---
FSBS =321, RISS 12 UNITS SQ GIVEN AT THIS TIME. REFUSED NICODERM PATCH. STATED PLEASE CLOSE THE DOOR AND DON'T LET ANYBODY IN TO BOTHER ME I JUST WANNA EAT". CALL LIGHT NOTED WITHIN EASY REACH. SIDERAILS UP X2.
--- NOTE | 2019-01-18 08:00 | NUR ---
SEEN BY REGAN, PATIENT MADE AWARE PLAN OF CARE.
[2019-01-18 08:03] LABS: BASOPHIL % 0.5 % (0-2); PLATELET COUNT 324 x10^3mcL (130-400)
[2019-01-18 08:10] LABS: CALCIUM 8.9 mg/dL (8.5-10.1); CARBON DIOXIDE 26.3 mmol/L (21-32); CHLORIDE SERUM 99 mmol/L (98-107); CREATININE SERUM 0.8 mg/dL (0.6-1.0); GFR1 > 60 mL/min; GLUCOSE SERUM 338 mg/dL (74-106); MAGNESIUM 1.5 mg/dL (1.8-2.4); PHOSPHOROUS 4.2 mg/dL (2.5-4.9); POTASSIUM SERUM 4.5 mmol/L (3.5-5.1); SODIUM SERUM 133 mmol/L (136-145)
[2019-01-18 08:22] LABS: RED CELL DISTRIBUTION WIDTH 16.1 % (11.5-14.5)
[2019-01-18 08:50] VITALS: BP 147/96
[2019-01-18 10:34] VITALS: BP 147/96
--- NOTE | 2019-01-18 10:42 | NUR ---
PATIENT MADE AWARE OF DISCHARGE HOME ORDER. STATED I AM VERY WEAK AND LIVES BY MYSELF AT HOME I NEED PHYSICAL THERAPY. SEEN PATIENT WALKING TO BATHROOM WITH STEADY GAIT. TROPHY ASSEMBLER DAYANNA MADE AWARE AND AT BEDSIDE DISCUSSED WITH PATIENT.
--- NOTE | 2019-01-18 11:40 | NUR ---
DISCHARGE INSTRUCTION EXPLAINED AND GIVEN TO PATIENT WHO IS AWAKE, ALERT, ORIENTED X4. PATIENT STATED THAT HER RIDE IS HERE. S/L TO LEFT WRIST REMOVED WITH CATHETER INTACT, DRSG APPLIED. TELEMETRY REMOVED AND RETURNED TO OR. PATIENT ABLE GET DRESSED, WALKED TO BATHROOM AND WALKED BACK WITH STEADY GAIT BY HERSELF. NO ANY DISTRESS NOTED AT THIS TIME.
--- NOTE | 2019-01-18 11:50 | NUR ---
BROUGHT VIA WHEELCHAIR ASSISTED BY FARIDA KHAN TO LOBBY. CONDITION STABLE UPON DISCHARGE.
== END 2019-01-18 11:41 | disposition home or self-care (01) | DRG 48 ==
LOC: ED 23:02 → MU 01-17 02:04 → DU 01-17 03:47
PROVIDERS: Emergency Medicine; ADMIT Internal Medicine
DX: E11.42 Type 2 diabetes mellitus with diabetic polyneuropathy (principal); E11.65 Type 2 diabetes mellitus with hyperglycemia; E78.5 Hyperlipidemia, unspecified; I10 Essential (primary) hypertension; F41.8 Other specified anxiety disorders; Z79.84 Long term (current) use of oral hypoglycemic drugs; Z91.14 Patient's other noncompliance with medication regimen
CPT/HCPCS: 82962; 86431; 87046; 87046-59; G0378; J1200; J1815; J1885; J2060; J2270; J2405; J7030; Q0092